=== PATIENT | female | born 2000 | race Caucasian/White ===

== ENCOUNTER 2022-02-26 14:35 | Emergency (ER) | payer OTHER, SELFPAY ==
[2022-02-26 14:59] VITALS: BP 133/74; PULSE 106; RESP 18; TEMP 36.6; O2SAT 97
--- NOTE | 2022-02-26 15:10 | ED.GENADULT ---
HPI - General Adult General Chief complaint: Upper Respiratory Infection Stated complaint: sorethroat,headache History of Present Illness HPI narrative: Pleasant 21 y/o female. PMHx None reported. Presents to [facility] today with acute complaints of nasal congestion, sore throat, and cough for the past 3 days. Fever at home, No CELESTIN, neck pain, lethargy. No dysphagia. No chest pain, palpitations, dyspnea, edema. No GI upset. No rash. 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 Related Data Home Medications Medication Instructions Recorded Confirmed drospirenone 3 mg-ethinyl 1 tablet DAILY 02/26/22 02/26/22 estradiol 0.02 mg tablet (Loryna (28)) Allergies Allergy/AdvReac Type Severity Reaction Status Date / Time No Known Allergies Allergy Verified 02/26/22 15:09 Review of Systems Review of Systems: CONSTITUTIONAL: Positive fever. No chills, sweats. EYES: Denies visual changes, redness, discharge. ENT: Positive rhinorrhea, congestion, sore throat. No otalgia. CARDIOVASCULAR: Denies chest pain, palpitations, edema. RESPIRATORY: Denies dyspnea, wheezing. Positive cough GASTROINTESTINAL: Denies abdominal pain, nausea, vomiting, diarrhea. GENITOURINARY: Denies dysuria, hematuria, abnormal discharge SKIN: Denies rash or itching. MUSCULOSKELETAL: Denies acute back pain, joint pain, or myalgia. NEUROLOGIC: Denies numbness, or focal weakness. PSYCHIATRIC: Denies anxiety or depression. Exam Narrative: GENERAL: This is a well-nourished, well-developed adult, in no apparent distress. HEAD: normocephalic, atraumatic. EYES: Sclera clear/white. EARS: External ears normal, auditory canals clear and without drainage, TMs normal. NOSE: External nose normal. Positive Rhinorrhea, +PND, no obstruction, nares patent. THROAT: Mucous membranes moist, posterior pharynx is erythematous, No exudates. NECK: Neck supple, non-tender without lymphadenopathy, masses or thyromegaly. No meningeal signs. CARDIOVASCULAR: Regular rate and rhythm. RESPIRATORY: Upper airway Rhonchi, cleared w/cough. Breath sounds equal bilaterally. No wheezes, or rales. GASTROINTESTINAL: Abdomen soft, non-tender, nondistended. Bowel sounds are active. No guarding. SKIN: warm, intact with no suspicious lesions or rash, good texture and turgor. NEURO: Alert, active, and age appropriate. No focal neurologic deficits. EXTREMITIES: Negative. Course Course Level of Care: Express Care Visit Vital Signs Vital signs: Vital Signs Temperature 36.6 C 02/26/22 14:59 Pulse Rate 106 H 02/26/22 14:59 Respiratory Rate 18 02/26/22 14:59 Blood Pressure 133/74 02/26/22 14:59 Pulse Oximetry 97 02/26/22 14:59 Oxygen Delivery Room Air 02/26/22 14:59 Temperature 36.6 C 02/26/22 14:59 Pulse Rate 106 H 02/26/22 14:59 Respiratory Rate 18 02/26/22 14:59 Blood Pressure 133/74 02/26/22 14:59 Pulse Oximetry 97 02/26/22 14:59 Oxygen Delivery Room Air 02/26/22 14:59 Medical Decision Making MDM Narrative Medical decision making narrative: Rapid Strep: Negative. Influenza Negative. OP Medication regimen as directed. May resume all additional OTC remedies prn for other symptomatic reliefs. PCP F/U 1WK. ER W/Emergent status change. Pt agrees. Differential Diagnosis Differential Diagnosis: Differential Diagnosis: Consideration of the following conditions may be warranted for the presenting problem, they are not final diagnoses: Likely UTI, Cystitis, Nephrolithiasis, bacterial vaginosis, Nephritis, candidiasis, vaginitis, pyelonephritis, Venereal Disease, or other. Vital Signs Vital Signs: Vital Signs Temperature 36.6 C 02/26/22 14:59 Pulse Rate 106 H 02/26/22 14:59 Respiratory Rate 18 02/26/22 14:59 Blood Pressure 133/74 02/26/22 14:59 Pulse Oximetry 97 02/26/22 14:59 Oxygen Delivery Room Air 02/26/22 14:59
== END 2022-02-26 15:22 | disposition home or self-care (01) ==
PROVIDERS: Emergency Provider Nurse Practitioner Adult Health
DX: J06.9 Acute upper respiratory infection, unspecified (principal)
CPT/HCPCS: 87081; 87804; 87880; 99203; G0463